=== PATIENT | female | born 1990 | race Caucasian/White ===

== ENCOUNTER 2019-05-17 11:05 | Emergency (ER) | payer MEDICAID ==
--- NOTE | 2019-05-17 11:23 | ED Physician Documentation ---
PD HPI NVD - Stated complaint Stated Complaint: FEMALE - Chief complaint Chief Complaint: Abd Pain - History obtained from History obtained from: Patient - History of Present Illness Timing - onset: How many weeks ago (2) Timing - duration: Weeks (2) Timing - details: Abrupt onset (2 weeks ago), Still present Associated symptoms: Abdominal pain (diffuse cramping pains for 2 weeks, with less appetite and ongoing nausea. No vomiting.), Loss of appetite, Other. No: Fever, Dizzy (but feeling lightheaded with weakness.), Near syncope / syncope Contributing factors: Other (no camping). No: Sick contact, Bad food, Travel, Recent antibiotics Improved by: BM Worsened by: Eating Similar symptoms before: Has not had sx before Recently seen: Not recently seen Review of Systems Constitutional: reports: Myalgias, Fatigue. denies: Fever, Chills Nose: denies: Rhinorrhea / runny nose, Congestion Throat: denies: Sore throat Respiratory: denies: Cough GI: reports: Abdominal Pain, Nausea, Diarrhea. denies: Vomiting : reports: Dysuria (today, with darker appearing urine. Some bilateral flank pain since last evening.), Hesitancy. denies: Frequency Skin: denies: Rash, Lesions Musculoskeletal: reports: Back pain (since last evening). denies: Neck pain Neurologic: reports: Generalized weakness, Headache (today). denies: Focal weakness, Numbness, Near syncope PD PAST MEDICAL HISTORY - Past Medical History Cardiovascular: None Respiratory: None Neuro: None Endocrine/Autoimmune: None GI: None : None - Present Medications Home Medications: Ambulatory Orders Medication Instructions Recorded Confirmed Dextroamphetamine/Amphetamine 25 mg PO 05/17/19 [Adderall Xr 25 mg Capsule] Dicyclomine [Bentyl] 10 mg PO QID PRN #20 capsule 05/17/19 Diphenoxylate/Atropine [Lomotil] 1 each PO QID PRN #16 tablet 05/17/19 Ondansetron Odt [Zofran] 4 mg TL Q6H PRN #20 tablet 05/17/19 clonazePAM [Clonazepam] PRN 05/17/19 - Allergies Allergies/Adverse Reactions: Allergies Allergy/AdvReac Type Severity Reaction Status Date / Time nickel Allergy Rash Verified 05/17/19 11:12 Sulfa (Sulfonamide Allergy Rash Verified 05/17/19 11:12 Antibiotics) PD ED PE NORMAL - Vitals Vital signs reviewed: Yes - General General: Alert and oriented X 3, Well developed/nourished - HEENT HEENT: PERRL, Moist mucous membranes, Pharynx benign - Neck Neck: Supple, no meningeal sign, No adenopathy - Cardiac Cardiac: RRR, No murmur - Respiratory Respiratory: No respiratory distress, Clear bilaterally - Abdomen Abdomen: Soft, Non tender, Non distended, No organomegaly, Other - Derm Derm: Normal color, Warm and dry - Extremities Extremities: No tenderness to palpate, Normal ROM s pain, No edema, No calf tenderness / cord - Neuro Neuro: Alert and oriented X 3, No motor deficit, Normal speech Results - Vitals Vitals: Vital Signs - 24 hr 05/17/19 05/17/19 11:10 14:08 Temperature 36.7 C Heart Rate 82 76 Respiratory 20 17 Rate Blood Pressure 149/90 H 121/74 O2 Saturation 100 100 Oxygen O2 Source Room air - Labs Labs: Laboratory Tests 05/17/19 05/17/19 05/17/19 11:15 12:02 12:02 WBC 22.3 H RBC 4.57 Hgb 13.9 Hct 41.8 MCV 91.5 MCH 30.4 MCHC 33.3 RDW 13.6 Plt Count 304 MPV 10.0 Neut # (Auto) Not Reportable Lymph # (Auto) Not Reportable Powell # (Auto) Not Reportable Eos # (Auto) Not Reportable Baso # (Auto) Not Reportable Absolute Nucleated RBC Not Reportable Total Counted 100 Band Neuts % (Manual) 0 Abnorm Lymph % (Manual) 0 Nucleated RBC % Not Reportable Neutrophils # (Manual) 7.6 H Lymphocytes # (Manual) 5.1 H Monocytes # (Manual) 0.2 Eosinophils # (Manual) 9.4 H Basophils # (Manual) 0.0 Differential Comment MANUAL DIFFERENTIAL WBC Morphology NORMAL APPEARANCE Platelet Estimate NORMAL (130-450,000) Platelet Morphology NORMAL APPEARANCE RBC Morph Micro Appear NORMAL APPEARANCE Sodium 140 Potassium 3.1 L Chloride 107 Carbon Dioxide 25 Anion Gap 8.0 BUN 15 Creatinine 0.7 Estimated GFR (MDRD) 99 Glucose 81 Calcium 8.9 Magnesium 2.2 Total Bilirubin 0.4 AST 22 ALT 21 Alkaline Phosphatase 97 Total Protein 7.4 Albumin 4.4 Globulin 3.0 Albumin/Globulin Ratio 1.5 Lipase 23 Urine Color YELLOW Urine Clarity SL Urine pH 6.0 Ur Specific Roscoe >=1.030 H Urine Protein TRACE Urine Glucose (UA) NEGATIVE Urine Ketones TRACE Urine Occult Blood LARGE H Urine Nitrite NEGATIVE Urine Bilirubin NEGATIVE Urine Urobilinogen 0.2 (NORMAL) Ur Leukocyte Esterase NEGATIVE Urine RBC 11-25 H Urine WBC 0-3 Ur Squamous Epith Cells RARE Squamous Urine Crystals 6-10 Calcium Oxalate Urine Bacteria None Seen Urine Mucus Few Strands Ur Microscopic Review INDICATED Urine Culture Comments NOT INDICATED Urine HCG, Qual NEGATIVE PD MEDICAL DECISION MAKING - ED course Complexity details: re-evaluated patient (she of course did not have BM here. Wrote lab order for stool studies. ), considered differential, d/w patient Departure - Departure Disposition: 01 Home, Self Care Clinical Impression: Dehydration Diarrhea Qualifiers: Diarrhea type: presumed infectious Qualified Code(s): R19.7 - Diarrhea, unspecified Abdominal pain Qualifiers: Abdominal location: generalized Qualified Code(s): R10.84 - Generalized abdominal pain Condition: Stable Record reviewed to determine appropriate education?: Yes Instructions: ED Diet Vomiting Diarrhea Prescriptions: Dicyclomine [Bentyl] 10 mg PO QID PRN #20 capsule PRN Reason: Abdominal Pain Diphenoxylate/Atropine [Lomotil] 1 each PO QID PRN #16 tablet PRN Reason: Diarrhea Ondansetron Odt [Zofran] 4 mg TL Q6H PRN #20 tablet PRN Reason: Nausea / Vomiting Comments: Ondansetron if needed for nausea. Frequent fluids to stay hydrated. Add some potassium supplement such as sports drinks. Dicyclomine if needed for abdominal cramping. Tylenol if needed as well for pains. Lomotil if needed for diarrhea. Do not take any of the antidiarrhea medicine until you get a stool sample that you can bring in. He can start the antidiarrheal after obtaining the sample. Bring a stool sample in for testing to see if there is particular bacterial cause of your symptoms. Discharge Date/Time: 05/17/19 14:20
[2019-05-17] MEDS ORDERED: SODIUM CHLORIDE 0.9% 1,000 ML IV ONE (11:57)
[2019-05-17] MEDS ORDERED: ONDANSETRON 4 MG/2 ML VIAL IVP STA (11:57)
[2019-05-17] MEDS ORDERED: FAMOTIDINE 20 MG/2 ML VIAL IVP STA (11:58)
[2019-05-17] MEDS ORDERED: KETOROLAC 30 MG/ML VIAL IVP STA (11:58)
[2019-05-17 12:08] LABS: BASOPHILS % (AUTO) 0.6 %; EOSINOPHILS % (AUTO) 38.8 %; HGB - HEMOGLOBIN 13.9 g/dL (12.0-16.0); LYMPHOCYTES % (AUTO) 18.7 %; MEAN CORPUSCULAR HEMOGLOBIN 30.4 pg (27.0-31.0); MEAN CORPUSCULAR HGB CONC 33.3 g/dL (32.0-36.0); MEAN CORPUSCULAR VOLUME 91.5 fL (81.0-99.0); MONOCYTES % (AUTO) 3.6 %; NEUTROPHILS % (AUTO) 37.8 %; PLT - PLATELET COUNT 304 10^3/uL (130-450); RED BLOOD COUNT 4.57 10^6/uL (4.20-5.40); RED CELL DISTRIBUTION WIDTH 13.6 % (12.0-15.0); WHITE BLOOD COUNT 22.3 x10^3/uL (4.8-10.8)
[2019-05-17 12:15] LABS: BILIRUBIN,URINE NEGATIVE (NEGATIVE); GLUCOSE, URINE (UA) NEGATIVE (NEGATIVE); KETONES,URINE (UA) TRACE mg/dL (NEGATIVE); LEUKOCYTE ESTERASE, URINE NEGATIVE (NEGATIVE); NITRITE,URINE NEGATIVE (NEGATIVE); OCCULT BLOOD,URINE LARGE (NEGATIVE); PROTEIN,URINE TRACE mg/dL (NEGATIVE); UROBILINOGEN,URINE 0.2 (NORMAL) E.U./dL (NORMAL)
[2019-05-17 12:15] LABS: ABNORMAL LYMPHS % (MANUAL) 0 %; BAND NEUTROPHILS % (MANUAL) 0 %
[2019-05-17 12:20] LABS: ALBUMIN 4.4 g/dL (3.2-5.5); ALBUMIN/GLOBULIN RATIO 1.5 (1.0-2.2); BILIRUBIN,TOTAL 0.4 mg/dL (0.2-1.0); CALCIUM 8.9 mg/dL (8.5-10.3); CREATININE 0.7 mg/dL (0.4-1.0); MAGNESIUM 2.2 mg/dL (1.7-2.8); TOTAL PROTEIN 7.4 g/dL (6.7-8.2)
[2019-05-17 12:25] LABS: CLARITY,URINE SL (CLEAR); HCG UR QUAL NEGATIVE
[2019-05-17 12:45] LABS: BACTERIA,URINE None Seen /HPF (None Seen); CRYSTALS,URINE 6-10 Calcium Oxalate /LPF; MUCUS,URINE Few Strands; SQUAMOUS EPITHELIAL CELL,UR RARE Squamous (<= Few)
[2019-05-17 12:56] LABS: EOSINOPHILS # (MANUAL) 9.4 10^3/uL (0-0.7); LYMPHOCYTES # (MANUAL) 5.1 10^3/uL (1.5-3.5); LYMPHOCYTES % (MANUAL) 23 %; MONOCYTES # (MANUAL) 0.2 10^3/uL (0.0-1.0)
[2019-05-17 12:57] LABS: DIFFERENTIAL COMMENT MANUAL DIFFERENTIAL; PLATELET ESTIMATE, MANUAL NORMAL (130-450,000) (NORMAL); PLATELET MORPHOLOGY NORMAL APPEARANCE (NORMAL); RBC MORPHOLOGY (MULTIPLE) NORMAL APPEARANCE (NORMAL)
[2019-05-17 14:08] VITALS: BP 121/74
== END 2019-05-17 14:20 | disposition home or self-care (01) ==
LOC: ED 11:05
DX: E86.0 Dehydration (principal); R19.7 Diarrhea, unspecified; R10.84 Generalized abdominal pain
CPT/HCPCS: 36415; 80053; 81001; 81003; 81025; 83690; 83735; 85025; 87086; 96361; 96374; 96375; 99284

== ENCOUNTER 2019-05-18 16:35 | Outpatient (CLI) | payer MEDICAID | END 2019-05-18 16:36 | disposition home or self-care (01) | LOC: LAB 16:35 | PROVIDERS: ATTEND Emergency Medicine | DX: R19.7 Diarrhea, unspecified (principal) | CPT/HCPCS: 87045; 87046; 87493 ==

== ENCOUNTER 2020-11-19 00:49 | Emergency (ER) | payer MEDICAID ==
[2020-11-19] MEDS ORDERED: BACITRACIN ZINC OINT 1 PACKET TOP STA (01:05)
[2020-11-19] MEDS ORDERED: TETANUS/DIPHTHERIA/PERTUSSIS 0.5 ML SYRINGE IM ONE (01:05)
--- NOTE | 2020-11-19 01:35 | ED Physician Documentation ---
History of Present Illness - Stated complaint Stated Complaint: R PINKY LAC - Chief complaint Chief Complaint: Laceration - History obtained from History obtained from: Patient - Additonal information Additional information: 30-year-old woman presents with cat scratch to right fifth finger after breaking up a cat Fight this evening. last tdap 2012. no other injuries. Review of Systems Skin: reports: Laceration (s) PD PAST MEDICAL HISTORY - Past Medical History Past Medical History: Yes Cardiovascular: None Respiratory: None Neuro: None Endocrine/Autoimmune: None GI: None : None Psych: Anxiety, ADD/ADHD - Past Surgical History Past Surgical History: Yes General: Appendectomy Ortho: Other - Present Medications Home Medications: Ambulatory Orders Medication Instructions Recorded Confirmed Dextroamphetamine/Amphetamine 25 mg PO 05/17/19 [Adderall Xr 25 mg Capsule] clonazePAM [Clonazepam] PRN 05/17/19 Amox/Clav 500/125 [Augmentin] 1 each PO Q12H 7 Days #14 tablet 11/19/20 Lactobacillus Acidophilus 1 each PO QDAC #10 tab 11/19/20 [Acidophilus Lactobacilli] - Allergies Allergies/Adverse Reactions: Allergies Allergy/AdvReac Type Severity Reaction Status Date / Time Sulfa (Sulfonamide Allergy Intermediate Rash Verified 11/19/20 01:01 Antibiotics) nickel Allergy Rash Verified 11/19/20 01:01 - Social History Does the pt smoke?: Yes Smoking Status: Current every day smoker Does the pt drink ETOH?: Yes - Immunizations Immunizations are current?: Yes - POLST Patient has POLST: No PD ED PE NORMAL - Vitals Vital signs reviewed: Yes - General General: Alert and oriented X 3, No acute distress - HEENT HEENT: Atraumatic - Extremities Extremities: Normal ROM s pain, Other (R 5th finger with 3cm superficial laceration to dorsum overlying pip joint. no foreign body) - Neuro Neuro: Alert and oriented X 3 Results - Vitals Vitals: Vital Signs - 24 hr 11/19/20 00:55 Temperature 36.3 C L Heart Rate 118 H Respiratory 18 Rate Blood Pressure 149/88 H O2 Saturation 97 Oxygen O2 Source Room air Procedures - Laceration (location) Finger right Length in cm: 3 Wound type: Linear Neurovascular status: Sensory intact, Motor intact, Vascular intact Anesthesia: Lidocaine 2% (digital block) Wound preparation: Irrigated copiously NS (irrigated with NS and water), Wound explored, To the base. No: FB identified Skin layer closure: Nylon, Interrupted, Size #-0 - enter number (4), Sutures - enter # (3) Other: Patient tolerated well, No complications, Neurovascular intact, Dressing applied, Tetanus booster given PD MEDICAL DECISION MAKING - ED course ED course: 30-year-old woman presented with simple laceration to right fifth finger. Tetanus booster given. Laceration repaired without complication. Strict return precautions given. She will follow-up for suture removal in 14 days. Departure - Departure Disposition: 01 Home, Self Care Clinical Impression: Cat scratch, Laceration of finger Condition: Good Instructions: ED Laceration All Prescriptions: Lactobacillus Acidophilus [Acidophilus Lactobacilli] 1 each PO QDAC #10 tab Amox/Clav 500/125 [Augmentin] 1 each PO Q12H 7 Days #14 tablet Comments: You were seen in the emergency department for a cut caused by a cat scratch. Monitor for the signs of infection that we discussed in the return to the emergency department for these or any new or worsening symptoms. You were given a tetanus shot here. You also were given a prescription for Augmentin which you should take as prescribed. Follow-up for suture removal in 14 days.
[2020-11-19 01:54] VITALS: BP 139/82
== END 2020-11-19 01:54 | disposition home or self-care (01) ==
LOC: ED 00:49
DX: S61.216A Laceration without foreign body of right little finger without damage to nail, initial encounter (principal); W55.03XA Scratched by cat, initial encounter; F17.200 Nicotine dependence, unspecified, uncomplicated; Z23 Encounter for immunization
CPT/HCPCS: 12013; 90471; 90715; 99283; A9270

== ENCOUNTER 2020-11-20 09:28 | Emergency (ER) | payer MEDICAID ==
[2020-11-20] MEDS ORDERED: cefTRIAXone 1 GM VIAL IM STA (09:58)
[2020-11-20] MEDS ORDERED: KETOROLAC 30 MG/ML VIAL IM STA (09:58)
[2020-11-20] MEDS ORDERED: ACETAMINOPHEN 325 MG TABLET PO STA (09:58)
[2020-11-20] MEDS ORDERED: LIDOCAINE 1% 2 ML VIAL MC ONE (09:59)
--- NOTE | 2020-11-20 10:36 | XRAY Report ---
PROCEDURE: Hand 3 View RT INDICATIONS: CAT SCRATCH/ INJURY 1 1/2 DAYS AGO TECHNIQUE: 3 views of the hand(s) acquired. COMPARISON: None. FINDINGS: Bones: No fractures or dislocations. No suspicious bony lesions. Soft tissues: No suspicious soft tissue calcifications. No radiopaque foreign body. IMPRESSION: No acute osseous abnormality. Reviewed by: Rolando Fields MD on 11/20/2020 10:35 AM [facility] Approved by: Rolando Fields MD on 11/20/2020 10:35 AM [facility] Station ID: [id number]
[2020-11-20 10:58] VITALS: BP 115/68
--- NOTE | 2020-11-20 20:35 | ED Physician Documentation ---
PD HPI WOUND RECHECK - Stated complaint Stated Complaint: RT HAND INJ - Chief complaint Chief Complaint: Wound - Histroy obtained from History obtained from: Patient - History of Present Illness Location: Right Hand (fingers little and ring) Timing - onset: How many days ago (09/19 (Monday evening, and seen in ER late Mon night (just after midnight). Had suturing and given Rx for Augmentin, which she brought to pharmacy yesterday morning but it is only ready at pharmacy today. So no antibiotics as yet.) Associated symptoms: Redness, Swelling, Pain. No: Fever, Drainage Recently seen: Emergency Dept (09/19 days ago) Review of Systems Constitutional: denies: Fever, Chills Nose: denies: Rhinorrhea / runny nose, Congestion Throat: denies: Sore throat Respiratory: denies: Cough GI: denies: Nausea, Vomiting Skin: reports: Rash (redness with swelling of little and ring fingers.), Lesions Neurologic: denies: Focal weakness, Numbness PD PAST MEDICAL HISTORY - Past Medical History Past Medical History: Yes Cardiovascular: None Respiratory: None Neuro: None Endocrine/Autoimmune: None GI: None : None Psych: Anxiety, ADD/ADHD - Past Surgical History Past Surgical History: Yes General: Appendectomy Ortho: Other - Present Medications Home Medications: Ambulatory Orders Medication Instructions Recorded Confirmed Dextroamphetamine/Amphetamine 25 mg PO 05/17/19 [Adderall Xr 25 mg Capsule] clonazePAM [Clonazepam] PRN 05/17/19 Amox/Clav 500/125 [Augmentin] 1 each PO Q12H 7 Days #14 tablet 11/19/20 Lactobacillus Acidophilus 1 each PO QDAC #10 tab 11/19/20 [Acidophilus Lactobacilli] HYDROcod/ACETAM 5/325 [Perry 5/325] 1 ea PO Q6H PRN #15 tablet 11/20/20 - Allergies Allergies/Adverse Reactions: Allergies Allergy/AdvReac Type Severity Reaction Status Date / Time Sulfa (Sulfonamide Allergy Intermediate Rash Verified 11/20/20 09:34 Antibiotics) nickel Allergy Rash Verified 11/20/20 09:34 - Social History Does the pt smoke?: Yes Smoking Status: Current every day smoker Does the pt drink ETOH?: Yes - Immunizations Immunizations are current?: Yes - POLST Patient has POLST: No PD ED PE NORMAL - Vitals Vital signs reviewed: Yes - General General: Alert and oriented X 3, Well developed/nourished, Other (appears in pain) - Derm Derm: Normal color, Warm and dry - Extremities Extremities: Other (right little and ring fingers with scratch wounds and intact sutures on little finger. No drainage noted. There is general redness and tenderness. No fluctuance. No tenderness in hand nor forearm. Limited ROM of fingers due to pain. Good color and cap refill in nailbed. ) - Neuro Neuro: Alert and oriented X 3, No motor deficit, No sensory deficit, Normal speech Results - Vitals Vitals: Vital Signs - 24 hr 11/20/20 11/20/20 11/20/20 09:31 10:37 10:56 Temperature 36.0 C L 36.9 C 37.0 C Heart Rate 115 H 85 72 Respiratory 16 18 19 Rate Blood Pressure 130/88 H 125/82 H 115/68 O2 Saturation 100 99 100 Oxygen O2 Source Room air - Rads (name of study) fingers xray Radiology: Prelim report reviewed (no fractures nor FBs.), EMP read c ontemporaneously (no air seen in soft tissue. ), See rad report PD MEDICAL DECISION MAKING - ED course Complexity details: considered differential (early wound infection post cat scratch (not bite) without any antibiotics yet (she states the pharmacy had not filled it yesterday adn just called her this mroning that it was ready. No first dose in ER. ), d/w patient ED course: Seems local infection. No pain/tenderness into forearm. Limited ROM of finger due to swelling. Normal sensation and cap refill at tip. Does not seem compartment syndrome nor tenosynovitis. Departure - Departure Disposition: 01 Home, Self Care Clinical Impression: Bite wound of right hand with infection Qualifiers: Encounter type: initial encounter Qualified Code(s): S61.451A - Open bite of right hand, initial encounter Condition: Stable Instructions: ED Bite Animal General Prescriptions: HYDROcod/ACETAM 5/325 [Perry 5/325] 1 ea PO Q6H PRN #15 tablet PRN Reason: Pain Comments: The splint will help reduce swelling as well as the pain by reducing movement. It can help reduce inflammation associated with the infection as well. I would anticipate using the splint likely for 2 or 3 days. You can remove the splint to evaluate the wound either later tonight or first thing tomorrow morning as we want to see if it is appearing improved. Anti-inflammatory such as ibuprofen or naproxen and to that add Tylenol or hydrocodone if needed for pain. Start your oral antibiotic after you pick it up from your pharmacy this evening. Continue with that twice daily as prescribed. Return if worsening symptoms over the next day or so. If this seems to improve steadily over the next few days, then just follow-up with your primary care on the ninth as planned. Otherwise return to the ER if not improving well or worsening. Discharge Date/Time: 11/20/20 10:56
== END 2020-11-20 10:56 | disposition home or self-care (01) ==
LOC: ED 09:28
DX: S61.256A Open bite of right little finger without damage to nail, initial encounter (principal); S61.254A Open bite of right ring finger without damage to nail, initial encounter; L08.9 Local infection of the skin and subcutaneous tissue, unspecified; W55.03XA Scratched by cat, initial encounter; F17.200 Nicotine dependence, unspecified, uncomplicated
CPT/HCPCS: 73130; 96372; 99283; A9270